=== PATIENT | female | born 1965 | race Caucasian/White ===

== ENCOUNTER 2016-12-13 08:38 | Emergency (ER) | payer OTHER ==
--- NOTE | 2016-12-13 10:32 | UC ---
Lower Extremity/Ankle HPI - HPI Summary HPI Summary: Slipped on wet pavement this morning, severe pain in L ankle since then. has only been able to partially bear weight with extreme difficulty, and that was only right after the injury. Denies prior fx or sx. - History of Current Complaint Chief Complaint: UCLowerExtremity Stated Complaint: LEFT ANKLE PAIN Time Seen by Provider: 12/13/16 10:19 Hx Obtained From: Patient ?: No Onset/Duration: Sudden Onset Severity Initially: Severe Severity Currently: Moderate Aggravating Factor(s): Standing, Ambulation Alleviating Factor(s): Rest Able to Bear Weight: No - Allergies/Home Medications Allergies/Adverse Reactions: Allergies Allergy/AdvReac Type Severity Reaction Status Date / Time No Known Allergies Allergy Verified 12/13/16 09:58 Home Medications: Home Medications [id number]-[id number] [Excedrin Extra Strength 250-250-65 mg] 2 tab PO ONCE 12/13/16 [History Confirmed 12/13/16] Cholecalciferol [Vitamin D3] 1,000 unit PO DAILY 12/13/16 [History Confirmed ] Hydroxocobalamin 1,000 mcg PO DAILY 12/13/16 [History Confirmed 12/13/16] PMH/Surg Hx/FS Hx/Imm Hx Previously Healthy: Yes - Surgical History Surgical History: None - Family History Known Family History: Positive: Hypertension - Social History Occupation: Employed Full-time Alcohol Use: None Substance Use Type: None Smoking Status (MU): Never Smoked Tobacco Review of Systems Constitutional: Negative Skin: Negative Eyes: Negative ENT: Negative Respiratory: Negative Cardiovascular: Negative Gastrointestinal: Negative Genitourinary: Negative Motor: Negative Neurovascular: Negative Musculoskeletal: Arthralgia, Decreased ROM Neurological: Negative Psychological: Negative All Other Systems Reviewed And Are Negative: Yes Physical Exam Triage Information Reviewed: Yes Appearance: Well-Appearing, Well-Nourished, Pain Distress - mild Vital Signs: Initial Vital Signs Temp 98.7 F 12/13/16 08:41 Pulse 93 12/13/16 08:41 Resp 16 12/13/16 08:41 BP 101/65 12/13/16 08:41 Pulse Ox 100 12/13/16 08:41 Vital Signs Reviewed: Yes Eye Exam: Normal Eyes: Positive: Conjunctiva Clear ENT Exam: Normal ENT: Positive: Normal ENT inspection, Hearing grossly normal, Pharynx normal, TMs normal Dental Exam: Normal Neck exam: Normal Neck: Positive: Supple, Nontender Respiratory Exam: Normal Respiratory: Positive: Chest non-tender, Lungs clear, Normal breath sounds, No respiratory distress, No accessory muscle use Cardiovascular Exam: Normal Cardiovascular: Positive: RRR, No Murmur Musculoskeletal Exam: Other - isolated swelling and tender over L lateal malleolus, no bony tenderness in the foot Musculoskeletal: Positive: ROM Limited @ - L ankle Neurological Exam: Normal Neurological: Positive: Alert Psychological Exam: Normal Skin Exam: Normal Lower Extremity Course/Dx - Differential Dx/Diagnosis Provider Diagnoses: L lateral ankle sprain Discharge - Discharge Plan Condition: Stable Disposition: HOME Patient Education Materials: Ankle Sprain (ED) Referrals: Petrona Tian MD [Primary Care Provider] - Chato Mccrary MD [Medical Doctor] - Additional Instructions: If you can, try to ice and elevate the ankle today and tomorrow. You can bear more weight on it as it starts to feel better. If you are back to your normal activities, with or without the splint, in 1-2 weeks, no specific follow-up is needed. If you are concerned about your pain level or suspect a problem, please see Dr. Tian or Dr. Mccrary. I recommend you take 600mg ibuprofen 3 times per day for pain.
--- NOTE | 2016-12-13 11:02 | RAD ---
INDICATION: Left ankle injury. TECHNIQUE: 3 views of the left ankle were obtained. FINDINGS: Soft tissue swelling is noted along the anterolateral aspect of the ankle. No fracture is seen. Joint spaces appear maintained. IMPRESSION: SOFT TISSUE SWELLING, NO FRACTURE IS SEEN.
[2016-12-13 11:31] VITALS: BP 143/100
== END 2016-12-13 11:25 | disposition home or self-care (01) ==
LOC: UCEAST 08:38
DX: S93.402A Sprain of unspecified ligament of left ankle, initial encounter (principal); W01.0XXA Fall on same level from slipping, tripping and stumbling without subsequent striking against object, initial encounter; Y93.9 Activity, unspecified; Y92.9 Unspecified place or not applicable; Y99.9 Unspecified external cause status
CPT/HCPCS: 99213; G0463

== ENCOUNTER → 2017-03-19 23:02 | Emergency (ER) | payer OTHER ==
[~2017-03-19 23:02] MED LIST: Diazepam TAB(*) 5 MG PO ONE; HYDROcodone/ACETAMIN 5-325 MG* 1 TAB PO ONE; Ibuprofen TAB* 600 MG PO ONE
--- NOTE | 2017-03-20 07:38 | ED ---
Yue Hernandez Rebecca, scribed for Osmar Rojas MD on 03/20/17 at 0356 . Neck Pain - HPI Summary HPI Summary: Pt is a 51 y/o F who presents to ED after c/o neck pain. Beginning at 1600, upon leaving her chiropractor's office after manipulations, she began experiencing R-sided neck pain. Pain has spread from the right side of the neck to the bilateral shoulders and across her upper back. Pain is now severe, ranked 10/10 and characterized stiffness and spasmodic. Last took Ibuprofen at about 2030 or so. Sx aggravated by palpation and movement, alleviated by nothing. Additionally c/o a "nerve burning kind of pain" down the bilateral UE. Denies nausea, weakness or any symptoms in the LE. Reports having an XR recently done that reveals 3 of her vertebra are "really close" with the bones, virtually stacked on top of each other (pinching the nerves). - History of Current Complaint Chief Complaint: EDNeckComplaint Stated Complaint: NECK PAIN/NUMBNESS Time Seen by Provider: 03/20/17 03:40 Hx Obtained From: Patient Onset/Duration Of Injury/Symptoms: Hours Onset/Duration: Started hours ago, Still Present Severity Currently: Severe Pain Intensity: 10 Pain Scale Used: 0-10 Numeric Location: Discrete At: - Right side of the neck, Radiates To: - Across the posterior surface of the upper back and both shoulders Character: Stiff, Spasmotic Aggravating Factors: Movement, Other: - palpatoin Alleviating Factors: Nothing Associated Signs & Symptoms: Positive: Negative. Negative: Weakness - Allergies/Home Medications Allergies/Adverse Reactions: Allergies Allergy/AdvReac Type Severity Reaction Status Date / Time No Known Allergies Allergy Verified 03/19/17 23:31 PMH/Surg Hx/FS Hx/Imm Hx Endocrine/Hematology History: Denies: Hx Diabetes Respiratory History: Reports: Hx Asthma - Immunization History Immunizations Up to Date: Yes Infectious Disease History: No Infectious Disease History: Denies: Traveled Outside the [place] in Last 30 Days - Family History Known Family History: Negative: Diabetes - Social History Alcohol Use: Rare Substance Use Type: Reports: None Smoking Status (MU): Never Smoked Tobacco Review of Systems Negative: Nausea Positive: Other - R-sided neck pain that has spread across the upper back and down into the shoulder "nerve burning" pain that you will understand. Neurological: Other - NEGATIVE: Any symptoms in the LE Negative: Weakness All Other Systems Reviewed And Are Negative: Yes Physical Exam - Summary Physical Exam Summary: The patient is well-nourished in no acute distress and in no acute pain. The skin is warm and dry and skin color reflects adequate perfusion. HEENT: The head is normocephalic and atraumatic. The pupils are equal and reactive. The conjunctivae are clear and without drainage. Nares are patent and without drainage. Mouth reveals moist mucous membranes and the throat is without erythema and exudate. The external ears are intact. The ear canals are patent and without drainage. The tympanic membranes are intact. Neck has increased muscle spasms on the perivertebral musculature of the cervical spine, both on the left and right sides. The trapezius muscle is also in spasms. Respiratory: Chest is non-tender. Lungs are clear to auscultation and breath sounds are symmetrical and equal. Cardiovascular: Hear is regular rate and rhythm. There is no murmur or rub auscultated. There is no peripheral edema and pulses are symmetrical and equal. Abdomen: The abdomen is soft and non-tender. There are normal bowel sounds heard in all four quadrants and there is no organomegaly palpated. Musculoskeletal: There is no back pain noted. Extremities are non-tender with full range of motion. There is good capillary refill. There is no peripheral edema or calf tenderness elicited. Neurological: Patient is alert and oriented to person, place and time. The patient has symmetrical motor strength in all four extremities. No weakness is noted and the radial, medial and ulnar nerves are intact. No decreased sensation in her upper extremity. Psychiatric: The patient has an appropriate affect and does not exhibit any anxiety or depression. \\ Triage Information Reviewed: Yes Vital Signs On Initial Exam: Initial Vitals Temp Pulse Resp BP Pulse Ox 99.1 F 93 20 134/78 99 03/19/17 23:28 03/19/17 23:28 03/19/17 23:28 03/19/17 23:28 03/19/17 23:28 Vital Signs Reviewed: Yes - Chava Coma Scale Coma Scale Total: 15 Diagnostics - Vital Signs Vital Signs Temp Pulse Resp BP Pulse Ox 03/20/17 01:34 98.1 F 79 126/66 97 03/19/17 23:28 99.1 F 93 20 134/78 99 - Laboratory Lab Statement: Any lab studies that have been ordered have been reviewed, and results considered in the medical decision making process. Re-Evaluation - Re-Evaluation First Eval Re-Evaluation Time: 05:09 Change: Improved Comment: Feeling much better. Second Eval Re-Evaluation Time: 07:12 Change: Improved Comment: Feeling significantly improved, discussed D/C plan with the pt. Neck Course/Dx - Course Assessment/Plan: Pt is a 51 y/o F who presents to ED after c/o neck pain. Beginning at 1600, upon leaving her chiropractor's office after manipulations, she began experiencing R-sided neck pain. Pain has spread from the right side of the neck to the bilateral shoulders and across her upper back. Pain is now severe, ranked 10/10 and characterized stiffness and spasmodic. Last took Ibuprofen at about 2030 or so. Sx aggravated by palpation and movement, alleviated by nothing. Additionally c/o a "nerve burning kind of pain" down the bilateral UE. Denies nausea, weakness or any symptoms in the LE. Reports having an XR recently done that reveals 3 of her vertebra are "really close" with the bones, virtually stacked on top of each other (pinching the nerves). In the ED course, pt was administered Valium, [place] 5/325 and Motrin which improved sx. Upon re-evaluation the pt's symptoms have significantly improved. She will be D/ C to home with Dx of cervical radiculopathy, Rx for [place] and a follow up with her PCP. She understands and agrees. Declined any imaging. Elevated BP noted and advised to f/u with PCP. - Diagnoses Differential Dx/HQI/PQRI: Positive: Sprain, Other - herniated disc, ddd Provider Diagnoses: Cervical radiculopathy Discharge - Discharge Plan Condition: Stable Disposition: HOME Prescriptions: Diazepam TAB(*) [Valium TAB(*)] 5 mg PO Q6H PRN #20 tab MDD 4 PRN Reason: muscle spasm HYDROcodone/ACETAMIN 5-325 MG* [[place] 5-325 TAB*] 1 tab PO Q6H PRN #20 tab MDD 4 PRN Reason: pain Patient Education Materials: Cervical Radiculopathy (ED) Forms: *Work Release Referrals: Petrona Tian MD [Primary Care Provider] - 3 Days Additional Instructions: Take Ibuprofen at home. The documentation as recorded by the Yue carr Rebecca accurately reflects the service I personally performed and the decisions made by me, Osmar Rojas MD.
[2017-03-20 09:45] VITALS: BP 125/71
== END | disposition home or self-care (01) ==
LOC: MERGE 23:02 → ED 23:02
DX: M54.12 Radiculopathy, cervical region (principal); M54.2 Cervicalgia
CPT/HCPCS: 99282; A9270-GY